=== PATIENT | female | born 1980 | race Caucasian/White ===

== ENCOUNTER 2018-02-18 16:44 | Emergency (ER) | payer OTHER ==
[~2018-02-18] VITALS: Ht 175.3 cm; Wt 95.2 kg
[~2018-02-18 16:44] MED LIST: LAMO5; OLAN2.5; Robaxin500 MG PO
== END 2018-02-18 18:49 | disposition home or self-care (01) ==
LOC: ER 16:44
DX: S92.515A Nondisplaced fracture of proximal phalanx of left lesser toe(s), initial encounter for closed fracture (principal); W22.8XXA Striking against or struck by other objects, initial encounter
CPT/HCPCS: 28475; 73630; 99283-25

== ENCOUNTER 2018-03-16 17:19 | Emergency (ER) | payer OTHER ==
[~2018-03-16] VITALS: Ht 172.7 cm; Wt 93.0 kg
[2018-03-16 18:22] LABS: BASOPHILS ABSOLUTE AUTO 0.05 K/mm3 (0.00-0.23); BASOPHILS PERCENT AUTO 1 % (0-2); EOSINOPHILS ABSOLUTE AUTO 0.41 K/mm3 (0.00-0.68); EOSINOPHILS PERCENT AUTO 5 % (0-6); Hematocrit 46.8 % (33.0-51.0); Hemoglobin 15.4 g/dL (11.5-16.0); IMMATURE GRAN ABSOLUTE AUTO 0.01 K/mm3 (0.00-0.10); IMMATURE GRAN PERCENT AUTO 0 % (0-1); LYMPHOCYTES ABSOLUTE AUTO 1.82 K/mm3 (0.84-5.20); LYMPHOCYTES PERCENT AUTO 23 % (21-46); MONOCYTES ABSOLUTE AUTO 0.52 K/mm3 (0.16-1.47); MONOCYTES PERCENT AUTO 6 % (4-13); Mean Corpuscular HGB 30.4 pg (26.0-34.0); Mean Corpuscular HGB Conc 32.9 g/dL (31.5-36.5); Mean Corpuscular Volume 92 fL (80-100); Mean Platelet Volume 10.3 fL (9.1-12.4); NEUTROPHILS ABSOLUTE AUTO 5.27 K/mm3 (1.96-9.15); NEUTROPHILS PERCENT AUTO 65 % (41-73); Platelet Count 267 K/mm3 (150-400); RDW Coefficient Variation 13.2 % (11.7-14.2); RDW Standard Deviation 44.4 fL (35.1-46.3); Red Blood Cell Count 5.07 M/mm3 (3.80-5.20); White Blood Cell Count 8.08 K/mm3 (4.00-11.30)
[2018-03-16 18:45] LABS: Alanine Aminotransfer (ALT/SGP 17 U/L (12-78); Albumin/Globulin Ratio 1.1 (0.8-1.8); Alk Phos 78 U/L (50-136); Anion Gap 10 mmol/L (6-16); Aspartate Aminotrans (AST/SGOT 17 U/L (12-37); Bilirubin, Total 0.3 mg/dL (0.1-1.0); Blood Urea Nitrogen 6 mg/dL (8-24); Bun/Creatinine Ratio 8.8 (12.0-20.0); CO2, Blood 21 mmol/L (21-32); Chloride, Blood 105 mmol/L (98-108); Creatinine, Blood 0.68 mg/dL (0.40-1.00); Globulin, Blood 3.7 g/dL (2.2-4.0); Glomerular Filtration Rate >60 (60-); Glucose, Blood 113 mg/dL (70-99); Potassium, Blood 3.2 mmol/L (3.5-5.5); Sodium, Blood 136 mmol/L (136-145); Total Protein, Blood 7.7 g/dL (6.4-8.2)
== END 2018-03-16 20:35 | disposition left against medical advice (07) ==
LOC: ER 17:19
PROVIDERS: Physician Assistant
DX: Z53.21 Procedure and treatment not carried out due to patient leaving prior to being seen by health care provider (principal)
CPT/HCPCS: 36415; 80053; 82947; 85025; 93005; 93010; 99282-25

== ENCOUNTER 2018-03-19 03:47 | Emergency (ER) | payer OTHER ==
[~2018-03-19] VITALS: Ht 175.3 cm; Wt 93.0 kg
[2018-03-19] MEDS ORDERED: OLAN5 PO (03:59)
[2018-03-19 04:44] LABS: Source, Urine Clean Catch
[2018-03-19 04:48] LABS: Bilirubin, Urine Neg (Neg); Blood, Urine Neg (Neg); Glucose Qualitative, Urine Neg (Neg); Ketones, Urine Neg (Neg); Leukocyte Esterase, Urine Neg (Neg); Nitrite, Urine Neg (Neg); Protein, Urine Neg (Neg); Urobilinogen, Urine NORM (Normal); pH, Urine 6.5 (5.0-8.0)
[2018-03-19 04:49] LABS: Appearance, Urine Clear (Clear); Color, Urine Yellow (P-Yellow)
[2018-03-19 04:56] LABS: U Amphetamine Screen Not Detected; U Barbituate Screen Not Detected; U Benzodiazapine Screen Not Detected; U Buprenorphine Screen Not Detected; U Cannabinoids Screen DETECTED; U Cocaine Screen Not Detected; U Methadone Screen Not Detected; U Methamphetamine Screen Not Detected; U Opiates Screen Not Detected; U Oxycodone Screen Not Detected; U Phencyclidine Screen Not Detected; U Propoxyphene Screen Not Detected
[2018-03-19] MEDS ORDERED: Vistaril50 MG PO (05:01)
[2018-03-19] MEDS ORDERED: LAMO100 PO (21:52)
[2018-03-19] MEDS ORDERED: Zofran4 MG PO (23:41)
[2018-03-19] MEDS ORDERED: Loperamide2 MG PO (23:41)
== END 2018-03-19 05:25 | disposition home or self-care (01) ==
LOC: ER 03:47
PROVIDERS: Emergency Medicine
DX: F41.9 Anxiety disorder, unspecified (principal); Z79.899 Other long term (current) drug therapy; F32.9 Major depressive disorder, single episode, unspecified; F17.200 Nicotine dependence, unspecified, uncomplicated
CPT/HCPCS: 36415; 80053; 81003; 85025; 93005; 93010; 96374; 96375; 99283-25; 99284-25; J2060; J2405

== ENCOUNTER 2018-03-19 19:26 | Emergency (ER) | payer OTHER ==
[~2018-03-19] VITALS: Ht 175.3 cm; Wt 93.0 kg
[~2018-03-19 19:26] MED LIST changes: +OLAN5 PO; +Vistaril50 MG PO
[2018-03-19 20:51] LABS: BASOPHILS ABSOLUTE AUTO 0.05 K/mm3 (0.00-0.23); BASOPHILS PERCENT AUTO 1 % (0-2); EOSINOPHILS ABSOLUTE AUTO 0.09 K/mm3 (0.00-0.68); EOSINOPHILS PERCENT AUTO 1 % (0-6); Hematocrit 45.8 % (33.0-51.0); Hemoglobin 15.3 g/dL (11.5-16.0); IMMATURE GRAN ABSOLUTE AUTO 0.02 K/mm3 (0.00-0.10); IMMATURE GRAN PERCENT AUTO 0 % (0-1); LYMPHOCYTES ABSOLUTE AUTO 1.08 K/mm3 (0.84-5.20); LYMPHOCYTES PERCENT AUTO 11 % (21-46); MONOCYTES ABSOLUTE AUTO 0.54 K/mm3 (0.16-1.47); MONOCYTES PERCENT AUTO 6 % (4-13); Mean Corpuscular HGB 30.9 pg (26.0-34.0); Mean Corpuscular HGB Conc 33.4 g/dL (31.5-36.5); Mean Corpuscular Volume 93 fL (80-100); Mean Platelet Volume 9.8 fL (9.1-12.4); NEUTROPHILS ABSOLUTE AUTO 8.08 K/mm3 (1.96-9.15); NEUTROPHILS PERCENT AUTO 82 % (41-73); Platelet Count 237 K/mm3 (150-400); RDW Coefficient Variation 12.8 % (11.7-14.2); RDW Standard Deviation 43.8 fL (35.1-46.3); Red Blood Cell Count 4.95 M/mm3 (3.80-5.20); White Blood Cell Count 9.86 K/mm3 (4.00-11.30)
[2018-03-19 21:18] LABS: Alanine Aminotransfer (ALT/SGP 12 U/L (12-78); Albumin, Blood 4.1 g/dL (3.4-5.0); Albumin/Globulin Ratio 1.1 (0.8-1.8); Alk Phos 80 U/L (50-136); Anion Gap 8 mmol/L (6-16); Aspartate Aminotrans (AST/SGOT 19 U/L (12-37); Bilirubin, Total 0.4 mg/dL (0.1-1.0); Blood Urea Nitrogen 9 mg/dL (8-24); Bun/Creatinine Ratio 13.4 (12.0-20.0); CO2, Blood 26 mmol/L (21-32); Chloride, Blood 105 mmol/L (98-108); Creatinine, Blood 0.67 mg/dL (0.40-1.00); Globulin, Blood 3.7 g/dL (2.2-4.0); Glomerular Filtration Rate >60 (60-); Glucose, Blood 88 mg/dL (70-99); Potassium, Blood 3.7 mmol/L (3.5-5.5); Sodium, Blood 139 mmol/L (136-145); Total Protein, Blood 7.8 g/dL (6.4-8.2)
[2018-03-19] MEDS ORDERED: LAMO100 PO (21:52)
[2018-03-19] MEDS ORDERED: Loperamide2 MG PO (23:41)
[2018-03-19] MEDS ORDERED: Zofran4 MG PO (23:41)
== END 2018-03-20 00:10 | disposition home or self-care (01) ==
LOC: ER 19:26
PROVIDERS: Emergency Medicine
DX: F41.0 Panic disorder [episodic paroxysmal anxiety] (principal); K52.9 Noninfective gastroenteritis and colitis, unspecified; Z79.899 Other long term (current) drug therapy; F32.9 Major depressive disorder, single episode, unspecified; Z87.891 Personal history of nicotine dependence
CPT/HCPCS: 36415; 80053; 85025; 96374; 96375; 99283-25; J2060; J2405

== ENCOUNTER → 2019-04-06 | Outpatient (CLI) | payer OTHER ==
[~2019-04-06] MED LIST changes: +CEPH500 PO; +Klonopin0.5 MG; +LAMO100 PO; +Loperamide2 MG PO; +Zofran4 MG PO
[2019-04-06 11:34] LABS: BASOPHILS ABSOLUTE AUTO 0.04 K/mm3 (0.00-0.23); BASOPHILS PERCENT AUTO 1 % (0-2); EOSINOPHILS ABSOLUTE AUTO 0.21 K/mm3 (0.00-0.68); EOSINOPHILS PERCENT AUTO 3 % (0-6); Hematocrit 42.7 % (33.0-51.0); Hemoglobin 14.2 g/dL (11.5-16.0); IMMATURE GRAN ABSOLUTE AUTO 0.02 K/mm3 (0.00-0.10); IMMATURE GRAN PERCENT AUTO 0 % (0-1); LYMPHOCYTES PERCENT AUTO 14 % (21-46); MONOCYTES ABSOLUTE AUTO 0.47 K/mm3 (0.16-1.47); MONOCYTES PERCENT AUTO 6 % (4-13); Mean Corpuscular HGB 29.8 pg (26.0-34.0); Mean Corpuscular HGB Conc 33.3 g/dL (31.5-36.5); Mean Corpuscular Volume 90 fL (80-100); Mean Platelet Volume 9.7 fL (9.1-12.4); NEUTROPHILS ABSOLUTE AUTO 5.83 K/mm3 (1.96-9.15); NEUTROPHILS PERCENT AUTO 76 % (41-73); Platelet Count 243 K/mm3 (150-400); RDW Coefficient Variation 13.2 % (11.7-14.2); RDW Standard Deviation 43.2 fL (35.1-46.3); Red Blood Cell Count 4.77 M/mm3 (3.80-5.20); White Blood Cell Count 7.67 K/mm3 (4.00-11.30)
[2019-04-06 12:33] LABS: Alanine Aminotransfer (ALT/SGP 14 U/L (12-78); Albumin, Blood 3.6 g/dL (3.4-5.0); Albumin/Globulin Ratio 0.9 (0.8-1.8); Alk Phos 99 U/L (50-136); Anion Gap 6 mmol/L (6-16); Aspartate Aminotrans (AST/SGOT 21 U/L (12-37); Bilirubin, Total 0.4 mg/dL (0.1-1.0); Blood Urea Nitrogen 11 mg/dL (8-24); Bun/Creatinine Ratio 15.5 (12.0-20.0); CO2, Blood 26 mmol/L (21-32); Calcium, Blood 9.1 mg/dL (8.5-10.1); Chloride, Blood 108 mmol/L (98-108); Creatinine, Blood 0.71 mg/dL (0.40-1.00); Globulin, Blood 4.2 g/dL (2.2-4.0); Glomerular Filtration Rate >60 (60-); Glucose, Blood 90 mg/dL (70-99); Potassium, Blood 3.9 mmol/L (3.5-5.5); Sodium, Blood 140 mmol/L (136-145); Total Protein, Blood 7.8 g/dL (6.4-8.2); Troponin I <0.015 ng/mL (0.000-0.040)
== END | disposition home or self-care (01) ==
LOC: LAB SHORT 11:30 → LAB EV 11:30
PROVIDERS: Chiropractor
DX: R07.9 Chest pain, unspecified (principal)
CPT/HCPCS: 80053; 84443; 84484; 85025

== ENCOUNTER 2020-02-25 11:12 | Emergency (ER) | payer OTHER ==
[~2020-02-25] VITALS: Ht 182.9 cm; Wt 90.7 kg
[2020-02-25] MEDS ORDERED: ONDA4ODT MM (11:33)
[2020-02-25] MEDS ORDERED: MECL25 PO (11:33)
== END 2020-02-25 12:08 | disposition home or self-care (01) ==
LOC: ER 11:12
DX: S06.0X9A Concussion with loss of consciousness of unspecified duration, initial encounter (principal); Z79.899 Other long term (current) drug therapy; Z87.442 Personal history of urinary calculi; Z86.718 Personal history of other venous thrombosis and embolism; F17.210 Nicotine dependence, cigarettes, uncomplicated; W51.XXXA Accidental striking against or bumped into by another person, initial encounter; Y93.89 Activity, other specified
CPT/HCPCS: 99283

== ENCOUNTER 2020-12-31 09:47 | Emergency (ER) | payer OTHER ==
[~2020-12-31] VITALS: Ht 175.3 cm; Wt 112.0 kg
[~2020-12-31 09:47] MED LIST changes: +MECL25 PO; +ONDA4ODT MM
[2020-12-31] MEDS ORDERED: ONDA4ODT MM (10:46)
== END 2020-12-31 10:50 | disposition home or self-care (01) ==
LOC: ER 09:47
DX: U07.1 COVID-19 (principal); Z79.899 Other long term (current) drug therapy; F17.210 Nicotine dependence, cigarettes, uncomplicated
CPT/HCPCS: 99285

== ENCOUNTER 2021-01-03 02:19 | Emergency (ER) | payer OTHER ==
[~2021-01-03] VITALS: Ht 172.7 cm; Wt 108.9 kg
== END 2021-01-03 05:01 | disposition home or self-care (01) ==
LOC: ER 02:19
DX: U07.1 COVID-19 (principal); F17.210 Nicotine dependence, cigarettes, uncomplicated
CPT/HCPCS: 71045; 93005; 93010; 99285-25

== ENCOUNTER → 2021-01-13 | Outpatient (CLI) | payer OTHER ==
[2021-01-13 10:47] LABS: Source, Urine Voided
[2021-01-13 12:27] LABS: Appearance, Urine Clear (Clear); Bilirubin, Urine Neg (Neg); Blood, Urine 3+ (Neg); Color, Urine Yellow (P-Yellow); Glucose Qualitative, Urine Neg (Neg); Ketones, Urine Neg (Neg); Leukocyte Esterase, Urine 3+ (Neg); Nitrite, Urine Neg (Neg); Protein, Urine 2+ (Neg); Specific Gravity, Urine 1.005 (1.003-1.022); Urobilinogen, Urine NORM (Normal)
[2021-01-13 13:21] LABS: White Blood Cells, Urine 25-50 /hpf (0-5)
[2021-01-13 13:22] LABS: Bacteria Mod /hpf; Squamous Epithelial Cells Rare /hpf (Few)
== END | disposition home or self-care (01) ==
LOC: LAB SHORT 10:44 → LAB 10:44
PROVIDERS: Family Medicine
DX: R10.9 Unspecified abdominal pain (principal)
CPT/HCPCS: 81001; 87077; 87086; 87186

== ENCOUNTER → 2021-02-09 | Outpatient (CLI) | payer OTHER ==
[2021-02-09 16:44] LABS: Appearance, Urine Clear (Clear); Bilirubin, Urine Neg (Neg); Blood, Urine 3+ (Neg); Color, Urine Yellow (P-Yellow); Glucose Qualitative, Urine Neg (Neg); Ketones, Urine Neg (Neg); Leukocyte Esterase, Urine 3+ (Neg); Nitrite, Urine Pos (Neg); Protein, Urine Neg (Neg); Specific Gravity, Urine 1.005 (1.003-1.022); Urobilinogen, Urine NORM (Normal)
[2021-02-09 17:07] LABS: Amorphous Light (0-Heavy); Bacteria Many /hpf; Mucus Light (0-Heavy); Squamous Epithelial Cells Few /hpf (Few)
== END | disposition home or self-care (01) ==
LOC: LAB SHORT 15:54 → LAB 15:54
PROVIDERS: Family Medicine
DX: N30.21 Other chronic cystitis with hematuria (principal)
CPT/HCPCS: 81001; 87077; 87086; 87186

== ENCOUNTER 2023-11-27 07:01 | Observation (INO) | payer OTHER ==
[~2023-11-27] VITALS: Ht 172.7 cm; Wt 217.0 kg
[~2023-11-27 07:01] MED LIST changes: -Klonopin0.5 MG; +Klonopin0.5 MG PO
[2023-11-27 07:40] LABS: BASOPHILS ABSOLUTE AUTO 0.04 K/mm3 (0.00-0.23); BASOPHILS PERCENT AUTO 0 % (0-2); EOSINOPHILS PERCENT AUTO 4 % (0-6); Hemoglobin 17.6 g/dL (11.5-16.0); IMMATURE GRAN ABSOLUTE AUTO 0.03 K/mm3 (0.00-0.10); IMMATURE GRAN PERCENT AUTO 0 % (0-1); LYMPHOCYTES ABSOLUTE AUTO 1.05 K/mm3 (0.84-5.20); LYMPHOCYTES PERCENT AUTO 11 % (21-46); MONOCYTES ABSOLUTE AUTO 0.59 K/mm3 (0.16-1.47); MONOCYTES PERCENT AUTO 6 % (4-13); Mean Corpuscular HGB 30.3 pg (26.0-34.0); Mean Corpuscular HGB Conc 34.5 g/dL (31.5-36.5); Mean Corpuscular Volume 88 fL (80-100); Mean Platelet Volume 9.4 fL (9.1-12.4); NEUTROPHILS ABSOLUTE AUTO 7.44 K/mm3 (1.96-9.15); NEUTROPHILS PERCENT AUTO 78 % (41-73); Platelet Count 265 K/mm3 (150-400); RDW Coefficient Variation 13.2 % (11.7-14.2); RDW Standard Deviation 42.5 fL (35.1-46.3); Red Blood Cell Count 5.81 M/mm3 (3.80-5.20); White Blood Cell Count 9.55 K/mm3 (4.00-11.30)
[2023-11-27] MEDS ORDERED: NS 1,000 ML IV SCH (07:45)
[2023-11-27 07:51] LABS: Albumin, Blood 3.9 g/dL (3.4-5.0); Bilirubin, Total 0.5 mg/dL (0.1-1.0); Calcium, Blood 9.4 mg/dL (8.5-10.1); Creatinine, Blood 0.64 mg/dL (0.40-1.00); Globulin, Blood 4.1 g/dL (2.2-4.0); Potassium, Blood 3.8 mmol/L (3.5-5.5)
[2023-11-27] MEDS ORDERED: MethylPREDNISolone Sod Succ 125 MG Vial IV ONE (07:55)
[2023-11-27] MEDS ORDERED: Azithromycin 250 MG Tab PO ONE (07:55)
[2023-11-27] MEDS ORDERED: Ketorolac Tromethamine 30mg Vial IV ONE (07:55)
[2023-11-27] MEDS ORDERED: Albuterol 2.5 MG/3 ML VIAL INH SCH ×2 (07:55→09:10)
[2023-11-27] MEDS ORDERED: Ipratropium/Albuterol SulF 2.5-0.5MG/3 ML Amp INH ONE (07:55)
[2023-11-27 08:18] LABS: Influenza A, PCR NEGATIVE (NEGATIVE); Influenza B, PCR NEGATIVE (NEGATIVE); Resp Syncytial Virus, PCR NEGATIVE (NEGATIVE); SARS-Cov-2 (COVID-19) PCR, MMC NEGATIVE (NEGATIVE)
[2023-11-27] MEDS ORDERED: LORazepam 2 MG/ML 1ML Injection IV ONE (09:10)
[2023-11-27] MEDS ORDERED: Acetaminophen 325 MG TABLET PO PRN (10:30)
[2023-11-27] MEDS ORDERED: FLU VACC TS2024-25(6MOS UP)/PF 45 MCG/0.5 ML SYRINGE IM ONE (10:35)
[2023-11-27] MEDS ORDERED: Enoxaparin 40 MG/0.4 ML SYR SC SCH (11:00)
[2023-11-27] MEDS ORDERED: Magnesium Sulf 2 GM/Water 50ML 50 ML IV ONE (11:35)
[2023-11-27] MEDS ORDERED: Potassium Chl 20MEQ/Water100ML 100 ML IV SCH (11:35)
[2023-11-27 11:50] VITALS: BP 132/85
[2023-11-27] MEDS ORDERED: NS 250 ML IV PRN (12:10)
[2023-11-27] MEDS ORDERED: Potassium Chloride 20 MEQ TabCR PO ONE (14:00)
[2023-11-27] MEDS ORDERED: Ipratropium/Albuterol SulF 2.5-0.5MG/3 ML Amp INH SCH (15:00)
[2023-11-27 16:21] VITALS: BP 129/70
--- NOTE | 2023-11-27 18:08 | NUR ---
SHIFT SUMMARY PT A&OX4, VSS, AMB W/ SBA, TOLERATING PO, VOIDING, AND DENIED PAIN. PT NOT PRODUCING ADDITIONAL SPUTUM AT THIS TIME AND STATES THAT SHE FEELS BETTER. PT REMAINS ON RA W/ NO C/O SOB. EKG COMPLETED PER ORDER AND CONT TO HAVE QT PROLONGATION. PT ASYMPTOMATIC. NO TELE EVENTS. CALL LIGHT WITHIN REACH AND PT ABLE TO MAKE NEEDS KNOWN.
[2023-11-27 19:46] VITALS: BP 130/66
[2023-11-27] MEDS ORDERED: MethylPREDNISolone Sod Succ 125 MG Vial IV SCH (21:00)
[2023-11-28 04:44] VITALS: BP 135/78
[2023-11-28] MEDS ORDERED: ClonazePAM 0.5 MG Tab PO SCH (05:10)
[2023-11-28 05:45] LABS: BASOPHILS ABSOLUTE AUTO 0.02 K/mm3 (0.00-0.23); BASOPHILS PERCENT AUTO 0 % (0-2); EOSINOPHILS PERCENT AUTO 0 % (0-6); Hemoglobin 15.6 g/dL (11.5-16.0); IMMATURE GRAN ABSOLUTE AUTO 0.06 K/mm3 (0.00-0.10); IMMATURE GRAN PERCENT AUTO 0 % (0-1); LYMPHOCYTES PERCENT AUTO 7 % (21-46); MONOCYTES ABSOLUTE AUTO 0.19 K/mm3 (0.16-1.47); MONOCYTES PERCENT AUTO 1 % (4-13); Mean Corpuscular HGB 30.3 pg (26.0-34.0); Mean Corpuscular HGB Conc 34.7 g/dL (31.5-36.5); Mean Corpuscular Volume 87 fL (80-100); Mean Platelet Volume 9.8 fL (9.1-12.4); NEUTROPHILS ABSOLUTE AUTO 12.39 K/mm3 (1.96-9.15); NEUTROPHILS PERCENT AUTO 91 % (41-73); Platelet Count 267 K/mm3 (150-400); RDW Coefficient Variation 13.2 % (11.7-14.2); RDW Standard Deviation 42.4 fL (35.1-46.3); Red Blood Cell Count 5.15 M/mm3 (3.80-5.20); White Blood Cell Count 13.66 K/mm3 (4.00-11.30)
[2023-11-28 06:28] LABS: Albumin, Blood 3.6 g/dL (3.4-5.0); Albumin/Globulin Ratio 0.9 (0.8-1.8); Bilirubin, Total 0.3 mg/dL (0.1-1.0); Bun/Creatinine Ratio 17.6 (12.0-20.0); Calcium, Blood 9.4 mg/dL (8.5-10.1); Creatinine, Blood 0.51 mg/dL (0.40-1.00); Globulin, Blood 3.8 g/dL (2.2-4.0); Magnesium, Blood 2.1 mg/dL (1.6-2.4); Total Protein, Blood 7.4 g/dL (6.4-8.2)
[2023-11-28 07:36] VITALS: BP 129/66
[2023-11-28] MEDS ORDERED: IPRAT-ALBUT 0.5-3 ML INH (10:58)
[2023-11-28] MEDS ORDERED: PRED20 PO (10:59)
--- NOTE | 2023-11-28 11:57 | NUR ---
DISCHARGE NOTE- PT WAS GIVEN VERBAL AND WRITTEN DISCHARGE INFO AND ACKNOWLEDGED UNDERSTANDING OF THEM. IV AND TELE DC'D PRIOR TO PT DISCHARGE. PT ESCORTED OUT VIA WC BY THE PROGRAM PROJECT MANAGER, NO S&S OF DISTRESS NOTED AT THE TIME OF DISCHARGE.
== END 2023-11-28 11:50 | disposition home or self-care (01) ==
LOC: ER 07:01 → MEDS 07:02
PROVIDERS: Family Medicine Adult Medicine; Student in an Organized Health Care Education/Training Program; ADMIT Hospitalist
DX: J45.901 Unspecified asthma with (acute) exacerbation (principal); J44.89 Other specified chronic obstructive pulmonary disease; B34.9 Viral infection, unspecified; R94.31 Abnormal electrocardiogram [ECG] [EKG]; F41.9 Anxiety disorder, unspecified; F43.12 Post-traumatic stress disorder, chronic; F17.210 Nicotine dependence, cigarettes, uncomplicated; Z79.899 Other long term (current) drug therapy; Z86.718 Personal history of other venous thrombosis and embolism
CPT/HCPCS: 0241U; 36415; 71045; 80053; 83735; 83880; 84145; 84484; 85025; 85379; 87070; 87205; 93005; 93010; 94640; 94644; 94664; 94760; 94762; 96361; 96365; 96372; 96372-59; 96374; 96375; 96376; 99285-25; A9270; G0378; J1650; J1885; J2060; J2919; J3475; J3480; J7030; J7050

== ENCOUNTER → 2024-01-04 | Outpatient (CLI) | payer OTHER ==
[~2024-01-04] MED LIST changes: +IPRAT-ALBUT 0.5-3 ML INH; +PRED20 PO
== END ==
LOC: LAB SHORT 12:48 → LAB 12:48
DX: R68.83 Chills (without fever) (principal)
CPT/HCPCS: 87077; 87086; 87186

== ENCOUNTER → 2024-11-26 | Outpatient (CLI) | payer OTHER | LOC: LAB 11:15 → LAB SHORT 11:15 | DX: R10.9 Unspecified abdominal pain (principal) | CPT/HCPCS: 87077; 87086; 87186 ==